=== PATIENT | male | born 1955 | race Caucasian/White ===

== ENCOUNTER 2020-10-26 13:07 | Outpatient (REF) | payer MEDICARE, SELFPAY | END 2020-10-26 13:08 | disposition home or self-care (01) | LOC: HO.BBR 13:07 | PROVIDERS: PCP Internal Medicine; Visit Provider Internal Medicine Hematology & Oncology | DX: Z13.89 Encounter for screening for other disorder (principal) ==

== ENCOUNTER 2022-03-07 10:06 | Outpatient (REF) | payer MEDICARE, SELFPAY | END 2022-03-07 10:07 | disposition home or self-care (01) | LOC: HO.BBR 10:06 | PROVIDERS: Visit Provider Internal Medicine Hematology & Oncology | DX: Z13.89 Encounter for screening for other disorder (principal) ==

== ENCOUNTER 2023-03-21 09:07 | Outpatient (REF) | payer MEDICARE, SELFPAY | END 2023-03-21 09:08 | disposition home or self-care (01) | LOC: HO.BBR 09:07 | PROVIDERS: Visit Provider Internal Medicine Hematology & Oncology | DX: Z13.89 Encounter for screening for other disorder (principal) ==